=== PATIENT | female | born 1955 | race Caucasian/White ===

== ENCOUNTER 2020-12-18 11:51 | Inpatient (IN) ==
[2020-12-18] MEDS ORDERED: SODIUM CHLORIDE 0.9% 1,000 ML IV STA (12:34)
[2020-12-18] MEDS ORDERED: ONDANSETRON 4 MG/2 ML VIAL IV STA (12:34)
[2020-12-18] MEDS ORDERED: HYDROmorphone 2 MG/1 ML VIAL IV STA ×2 (12:36→14:18)
[2020-12-18 12:41] LABS: Bacteria,Urine Many /HPF (Few); Bilirubin,Urine Negative (Negative); Blood, Urine Moderate mg/dL (Negative); Glucose,Urine (UA) >=500 mg/dL (Negative); Ketones,Urine Negative (Negative); Nitrite,Urine Positive (Negative); Protein,Urine >=500 MG/DL; RBC,Urine 167 /HPF (0-4); Urine Appearance CLOUDY (Clear); Urine Color Amber (Yellow); Urine Urobilinogen < 2.0 EU/DL (0.2-1.0)
[2020-12-18 13:54] LABS: Basophils % 0.2 % (0.0-0.8); Eosinophils % 0.1 % (0.00-10.9); Hematocrit 36.4 VOL% (35.7-47.0); Hemoglobin 11.3 GM/DL (12.0-16.0); Immature Granulocytes % 0.9 %; Immature Granulocytes Absolute 0.14 #; Lymphocytes # 0.6 10*3/uL (1.4-4.0); Lymphocytes % 3.5 % (21.3-54.2); Mean Corpuscular Volume 81.1 FL (87-102); Mean Platelet Volume 9.6 FL (9.6-12.0); Monocytes % 4.7 % (1.7-12.7); NRBC # 0.02 10*3/uL; Neutrophils % 90.6 % (38.7-73.9); Platelet Count 371 T/CUMM (130-400); Red Blood Count 4.49 MC/CUMM (3.8-5.5); Red Cell Distribution Width 17.7 % (9.3-17.3); White Blood Count 15.9 T/CUMM (4-12)
[2020-12-18 14:15] LABS: Alanine Aminotransferase 16 U/L (13-56); Albumin 3.1 G/DL (3.4-5.0); Alkaline Phosphatase 147 U/L (45-117); Aspartate Amino Transferase 13 U/L (0-37); Blood Urea Nitrogen 27 MG/DL (7-18); Carbon Dioxide 23 MMOL/L (21-32); Estimated Glom Filtration Rate 27 ML/MIN; Glucose 373 MG/DL (74-106); Osmolality,Calculated 287.2 MOS/KG (273-304); Potassium 3.8 MMOL/L (3.5-5.1); Sodium 134 MMOL/L (136-145); Total Protein 7.8 G/DL (6.4-8.2)
[2020-12-18 14:16] LABS: Atypical Lymphocytes Few; Eosinophils 1 % (0-10); Lymphocytes 8 % (20-55); Platelet Estimate Adequate; Reactive Lymphocytes Few; Segmented Neutrophils 88 % (50-85); Total Cells Counted 100
[2020-12-18 14:17] LABS: Anisocytosis Slight
[2020-12-18] MEDS ORDERED: LACTATED RINGERS 1,000 ML IV ONE (14:58)
[2020-12-18] MEDS ORDERED: LACTATED RINGERS 500 ML IV ONE (14:58)
[2020-12-18] MEDS ORDERED: cefTRIAXone 1,000 MG in SODIUM CHLORIDE 0.9% 100 ML IV STA (15:00)
[2020-12-18] MEDS ORDERED: ONDANSETRON 4 MG/2 ML VIAL IV PRN (15:30)
[2020-12-18] MEDS ORDERED: GLUCAGON 1 MG VIAL IM PRN (15:30)
[2020-12-18] MEDS ORDERED: hydrALAZINE 20 MG/1 ML VIAL IV PRN (15:34)
[2020-12-18] MEDS: INSULIN LISPRO 100 UNIT/ML SUBCUT SCH ×2 (17:46→21:30)
[2020-12-18] MEDS ORDERED: ACETAMINOPHEN 325 MG TABLET PO PRN (17:49)
[2020-12-18] MEDS: ENOXAPARIN 30 MG/0.3 ML SYRINGE SUBCUT SCH (18:41)
[2020-12-18] MEDS: MORPHINE 2 MG/1 ML SYRINGE IV PRN (21:30)
[2020-12-18] MEDS: SODIUM CHLORIDE 0.45% 1,000 ML IV SCH (21:41)
[2020-12-19] MEDS: HYDROmorphone 2 MG/1 ML VIAL IV PRN ×2 (01:14→09:26)
[2020-12-19] MEDS ORDERED: KETOROLAC 15 MG/1 ML VIAL IV ONE (02:22)
[2020-12-19 03:11] LABS: Basophils % 0.1 % (0.0-0.8); Eosinophils % 0.1 % (0.00-10.9); Hematocrit 27.5 VOL% (35.7-47.0); Immature Granulocytes % 1.3 %; Immature Granulocytes Absolute 0.23 #; Lymphocytes # 0.8 10*3/uL (1.4-4.0); Lymphocytes % 4.2 % (21.3-54.2); Mean Corpuscular HGB Conc 31.6 GM/DL (32-36); Mean Corpuscular Volume 79.3 FL (87-102); Mean Platelet Volume 9.8 FL (9.6-12.0); Monocytes % 5.3 % (1.7-12.7); Red Cell Distribution Width 17.6 % (9.3-17.3); White Blood Count 17.9 T/CUMM (4-12)
[2020-12-19 03:12] LABS: Hemoglobin 8.7 GM/DL (12.0-16.0); Platelet Count 254 T/CUMM (130-400); Red Blood Count 3.47 MC/CUMM (3.8-5.5)
[2020-12-19 03:21] LABS: Calcium 9.4 MG/DL (8.5-10.1); Osmolality,Calculated 279.7 MOS/KG (273-304); Potassium 3.9 MMOL/L (3.5-5.1)
[2020-12-19 03:25] LABS: Risk Ratio 1.71; VLDL Cholesterol 31.8 MG/DL
[2020-12-19 04:03] LABS: Band Neutrophils 4 % (0-10); Lymphocytes 6 % (20-55); Metamyelocytes 1 %; Segmented Neutrophils 82 % (50-85); Total Cells Counted 100
[2020-12-19 04:09] LABS: Hypochromasia 1+; Platelet Estimate Normal; Polychromasia Few; Reactive Lymphocytes 1+
[2020-12-19] MEDS ORDERED: MAGNESIUM SULF RIDER 2 GM/50 ML PREMIX IV PRN (08:15)
[2020-12-19] MEDS ORDERED: MAGNESIUM SULF RIDER 4 GM/100 ML PREMIX IV PRN (08:15)
[2020-12-19] MEDS ORDERED: LEVOFLOXACIN INJ 750 MG/150 ML PREMIX IV SCH (08:30)
[2020-12-19] MEDS: INSULIN GLARGINE 100 UNIT/ML SUBCUT SCH ×2 (09:26→21:13)
[2020-12-19] MEDS: carvediloL 6.25 MG TABLET PO SCH (09:27)
[2020-12-19] MEDS: SERTRALINE 100 MG TABLET PO SCH (09:27)
[2020-12-19] MEDS: PANTOPRAZOLE 40 MG TABLET PO SCH (09:27)
[2020-12-19] MEDS: tiZANidine 4 MG TABLET PO SCH ×2 (09:27→22:57)
[2020-12-19] MEDS: GABAPENTIN 600 MG TABLET PO SCH (09:27)
[2020-12-19] MEDS: INSULIN LISPRO 100 UNIT/ML SUBCUT SCH ×4 (09:28→21:13)
[2020-12-19] MEDS: SODIUM CHLORIDE 0.45% 1,000 ML IV SCH ×2 (09:28→18:00)
[2020-12-19] MEDS: CHOLECALCIFEROL 5,000 UNIT TABLET PO SCH (09:28)
[2020-12-19] MEDS: PIPERACILLIN/TAZOBACTAM 3,375 MG in SODIUM CHLORIDE 0.9% 100 ML IV SCH ×3 (10:19→17:11)
[2020-12-19] MEDS ORDERED: NALOXONE 0.4 MG/ML VIAL IV PRN (12:52)
[2020-12-19] MEDS ORDERED: VANCOMYCIN INJ 1,250 MG in SODIUM CHLORIDE 0.9% 250 ML IV SCH (14:00)
[2020-12-19] MEDS ORDERED: cefTRIAXone 1,000 MG in SODIUM CHLORIDE 0.9% 100 ML IV SCH (16:00)
[2020-12-19] MEDS: ENOXAPARIN 30 MG/0.3 ML SYRINGE SUBCUT SCH (17:05)
[2020-12-19] MEDS ORDERED: SODIUM CHLORIDE 0.9% 1,000 ML IV ONE (20:00)
[2020-12-19] MEDS: PRAMIPEXOLE 0.25 MG TABLET PO SCH (21:11)
[2020-12-19] MEDS: ROSUVASTATIN 20 MG TABLET PO SCH (21:11)
[2020-12-20] MEDS: SODIUM CHLORIDE 0.45% 1,000 ML IV SCH ×2 (02:05→08:31)
[2020-12-20] MEDS: PIPERACILLIN/TAZOBACTAM 3,375 MG in SODIUM CHLORIDE 0.9% 100 ML IV SCH ×2 (02:05→08:31)
[2020-12-20 07:56] LABS: Basophils % 0.2 % (0.0-0.8); Eosinophils # 0.1 10*3/uL (0.0-0.87); Hematocrit 22.9 VOL% (35.7-47.0); Hemoglobin 7.1 GM/DL (12.0-16.0); Immature Granulocytes % 1.1 %; Immature Granulocytes Absolute 0.12 #; Lymphocytes # 0.8 10*3/uL (1.4-4.0); Lymphocytes % 7.6 % (21.3-54.2); Mean Corpuscular Volume 81.5 FL (87-102); Mean Platelet Volume 9.8 FL (9.6-12.0); Monocytes % 4.7 % (1.7-12.7); Neutrophils % 85.4 % (38.7-73.9); Platelet Count 185 T/CUMM (130-400); Red Blood Count 2.81 MC/CUMM (3.8-5.5); White Blood Count 11.1 T/CUMM (4-12)
[2020-12-20 08:15] LABS: Albumin 1.9 G/DL (3.4-5.0); Bilirubin,Total 0.4 MG/DL (0.20-1.00); Calcium 8.9 MG/DL (8.5-10.1); Osmolality,Calculated 276.8 MOS/KG (273-304); Potassium 3.5 MMOL/L (3.5-5.1); Total Protein 5.9 G/DL (6.4-8.2)
[2020-12-20] MEDS: CHOLECALCIFEROL 5,000 UNIT TABLET PO SCH (08:21)
[2020-12-20] MEDS: tiZANidine 4 MG TABLET PO SCH ×2 (08:21→22:44)
[2020-12-20] MEDS: GABAPENTIN 600 MG TABLET PO SCH (08:21)
[2020-12-20] MEDS: PANTOPRAZOLE 40 MG TABLET PO SCH (08:22)
[2020-12-20] MEDS: INSULIN GLARGINE 100 UNIT/ML SUBCUT SCH ×2 (08:22→21:43)
[2020-12-20] MEDS: INSULIN LISPRO 100 UNIT/ML SUBCUT SCH ×4 (08:22→21:46)
[2020-12-20] MEDS: SERTRALINE 100 MG TABLET PO SCH (08:22)
[2020-12-20] MEDS ORDERED: SODIUM CHLORIDE 0.9% 1,000 ML IV PRN (08:39)
[2020-12-20 08:59] LABS: % Iron Saturation 4.9 % (18-50)
[2020-12-20 09:12] LABS: Folate 9.34 NG/ML (5.38-24.0)
[2020-12-20 09:41] LABS: Basophils % 0.1 % (0.0-0.8); Eosinophils # 0.1 10*3/uL (0.0-0.87); Hematocrit 23.7 VOL% (35.7-47.0); Hemoglobin 7.4 GM/DL (12.0-16.0); Immature Granulocytes % 0.9 %; Immature Granulocytes Absolute 0.11 #; Lymphocytes # 0.9 10*3/uL (1.4-4.0); Lymphocytes % 7.5 % (21.3-54.2); Mean Corpuscular HGB Conc 31.2 GM/DL (32-36); Mean Corpuscular Volume 80.9 FL (87-102); Mean Platelet Volume 9.3 FL (9.6-12.0); Neutrophils % 86.5 % (38.7-73.9); Platelet Count 184 T/CUMM (130-400); Red Blood Count 2.93 MC/CUMM (3.8-5.5); Red Cell Distribution Width 17.9 % (9.3-17.3); White Blood Count 11.6 T/CUMM (4-12)
[2020-12-20 10:02] LABS: Hypochromasia 4+; Platelet Estimate Adequate
[2020-12-20 12:21] LABS: Hypochromasia 3+; Lymphocytes 10 % (20-55); Platelet Estimate Adequate; Segmented Neutrophils 84 % (50-85); Total Cells Counted 100
[2020-12-20] MEDS: SODIUM BICARB INJ 100 MEQ in SODIUM CHLORIDE 0.45% 1,000 ML IV SCH (12:42)
[2020-12-20] MEDS ORDERED: MAGNESIUM HYDROXIDE SUSP 30 ML UDCUP PO PRN (13:31)
[2020-12-20] MEDS: cefTRIAXone 1,000 MG in SODIUM CHLORIDE 0.9% 100 ML IV SCH (16:05)
[2020-12-20] MEDS: carvediloL 6.25 MG TABLET PO SCH (16:12)
[2020-12-20] MEDS ORDERED: PIPERACILLIN/TAZOBACTAM 3,375 MG in SODIUM CHLORIDE 0.9% 100 ML IV SCH (20:30)
[2020-12-20] MEDS: PRAMIPEXOLE 0.25 MG TABLET PO SCH (21:41)
[2020-12-20] MEDS: ROSUVASTATIN 20 MG TABLET PO SCH (21:41)
[2020-12-21] MEDS: SODIUM BICARB INJ 100 MEQ in SODIUM CHLORIDE 0.45% 1,000 ML IV SCH ×2 (01:50→13:40)
[2020-12-21] MEDS: HYDROmorphone 2 MG/1 ML VIAL IV PRN (04:07)
[2020-12-21 05:13] LABS: Basophils % 0.1 % (0.0-0.8); Eosinophils # 0.1 10*3/uL (0.0-0.87); Eosinophils % 0.6 % (0.00-10.9); Hematocrit 26.6 VOL% (35.7-47.0); Hemoglobin 8.4 GM/DL (12.0-16.0); Immature Granulocytes % 0.7 %; Immature Granulocytes Absolute 0.09 #; Lymphocytes # 0.8 10*3/uL (1.4-4.0); Lymphocytes % 6.4 % (21.3-54.2); Mean Corpuscular HGB Conc 31.6 GM/DL (32-36); Mean Corpuscular Volume 80.1 FL (87-102); Mean Platelet Volume 9.3 FL (9.6-12.0); Monocytes % 2.5 % (1.7-12.7); Neutrophils % 89.7 % (38.7-73.9); Platelet Count 206 T/CUMM (130-400); Red Blood Count 3.32 MC/CUMM (3.8-5.5); Red Cell Distribution Width 17.2 % (9.3-17.3); White Blood Count 12.3 T/CUMM (4-12)
[2020-12-21 05:39] LABS: Hypochromasia 1+; Lymphocytes 6 % (20-55); Microcytosis 1+; Platelet Estimate Adequate; Segmented Neutrophils 90 % (50-85); Total Cells Counted 100
[2020-12-21 05:40] LABS: Calcium 8.8 MG/DL (8.5-10.1); Osmolality,Calculated 275.8 MOS/KG (273-304); Potassium 3.4 MMOL/L (3.5-5.1)
[2020-12-21] MEDS: INSULIN LISPRO 100 UNIT/ML SUBCUT SCH ×4 (08:47→23:40)
[2020-12-21] MEDS: INSULIN GLARGINE 100 UNIT/ML SUBCUT SCH ×2 (08:49→23:36)
[2020-12-21] MEDS: GABAPENTIN 600 MG TABLET PO SCH (08:53)
[2020-12-21] MEDS: PANTOPRAZOLE 40 MG TABLET PO SCH (08:54)
[2020-12-21] MEDS: SERTRALINE 100 MG TABLET PO SCH (08:56)
[2020-12-21] MEDS: carvediloL 6.25 MG TABLET PO SCH ×2 (08:56→16:50)
[2020-12-21] MEDS: tiZANidine 4 MG TABLET PO SCH ×3 (08:57→23:42)
[2020-12-21] MEDS: CHOLECALCIFEROL 5,000 UNIT TABLET PO SCH (09:01)
[2020-12-21] MEDS: cefTRIAXone 1,000 MG in SODIUM CHLORIDE 0.9% 100 ML IV SCH (16:22)
[2020-12-21 18:06] LABS: Creatinine,Urine Random 14 MG/DL; Total Protein,Urine Random 72 MG/DL
[2020-12-21] MEDS: ROSUVASTATIN 20 MG TABLET PO SCH (23:38)
[2020-12-21] MEDS: PRAMIPEXOLE 0.25 MG TABLET PO SCH (23:39)
[2020-12-22 04:55] LABS: Basophils % 0.1 % (0.0-0.8); Eosinophils # 0.1 10*3/uL (0.0-0.87); Eosinophils % 0.4 % (0.00-10.9); Hematocrit 24.8 VOL% (35.7-47.0); Immature Granulocytes % 0.6 %; Immature Granulocytes Absolute 0.09 #; Lymphocytes # 1.2 10*3/uL (1.4-4.0); Lymphocytes % 8.7 % (21.3-54.2); Mean Corpuscular HGB Conc 32.3 GM/DL (32-36); Mean Corpuscular Volume 78.2 FL (87-102); Monocytes % 3.5 % (1.7-12.7); Neutrophils % 86.7 % (38.7-73.9); Platelet Count 222 T/CUMM (130-400); Red Blood Count 3.17 MC/CUMM (3.8-5.5); Red Cell Distribution Width 17.2 % (9.3-17.3); White Blood Count 14.1 T/CUMM (4-12)
[2020-12-22 05:09] LABS: Calcium 8.9 MG/DL (8.5-10.1); Osmolality,Calculated 274.9 MOS/KG (273-304); Potassium 3.3 MMOL/L (3.5-5.1)
[2020-12-22] MEDS: SODIUM BICARB INJ 100 MEQ in SODIUM CHLORIDE 0.45% 1,000 ML IV SCH (05:41)
[2020-12-22] MEDS: INSULIN LISPRO 100 UNIT/ML SUBCUT SCH ×4 (07:12→20:36)
[2020-12-22] MEDS: INSULIN GLARGINE 100 UNIT/ML SUBCUT SCH ×2 (07:42→20:36)
[2020-12-22] MEDS: SERTRALINE 100 MG TABLET PO SCH (09:01)
[2020-12-22] MEDS: GABAPENTIN 600 MG TABLET PO SCH (09:02)
[2020-12-22] MEDS: tiZANidine 4 MG TABLET PO SCH (09:02)
[2020-12-22] MEDS: CHOLECALCIFEROL 5,000 UNIT TABLET PO SCH (09:02)
[2020-12-22] MEDS: carvediloL 6.25 MG TABLET PO SCH ×2 (09:02→16:45)
[2020-12-22] MEDS: PANTOPRAZOLE 40 MG TABLET PO SCH (09:02)
[2020-12-22] MEDS: POTASSIUM CHLORIDE 20 MEQ TABLET PO PRN (09:03)
[2020-12-22] MEDS: FERRIC GLUCONATE COMPLEX 125 MG in SODIUM CHLORIDE 0.9% 100 ML IV SCH (10:05)
[2020-12-22] MEDS ORDERED: SODIUM CHLORIDE 0.9% 500 ML IV ONE (11:55)
[2020-12-22 12:47] LABS: Hematocrit 23.1 VOL% (35.7-47.0); Hemoglobin 7.4 GM/DL (12.0-16.0)
[2020-12-22] MEDS ORDERED: SODIUM CHLORIDE 0.9% 1,000 ML IV PRN (13:00)
[2020-12-22] MEDS: cefTRIAXone 1,000 MG in SODIUM CHLORIDE 0.9% 100 ML IV SCH (13:59)
[2020-12-22] MEDS: PRAMIPEXOLE 0.25 MG TABLET PO SCH (20:31)
[2020-12-22] MEDS: ROSUVASTATIN 20 MG TABLET PO SCH (20:31)
[2020-12-23 06:35] LABS: Basophils % 0.2 % (0.0-0.8); Eosinophils # 0.2 10*3/uL (0.0-0.87); Eosinophils % 1.8 % (0.00-10.9); Hematocrit 33.1 VOL% (35.7-47.0); Immature Granulocytes Absolute 0.23 #; Lymphocytes # 1.1 10*3/uL (1.4-4.0); Mean Corpuscular Volume 80.9 FL (87-102); Mean Platelet Volume 9.1 FL (9.6-12.0); Monocytes % 4.4 % (1.7-12.7); Neutrophils % 82.6 % (38.7-73.9); Platelet Count 263 T/CUMM (130-400); Red Cell Distribution Width 17.4 % (9.3-17.3); White Blood Count 11.7 T/CUMM (4-12)
[2020-12-23 06:56] LABS: Calcium 9.2 MG/DL (8.5-10.1); Osmolality,Calculated 276.7 MOS/KG (273-304); Potassium 3.4 MMOL/L (3.5-5.1)
[2020-12-23 07:04] LABS: Red Blood Count 4.09 MC/CUMM (3.8-5.5)
[2020-12-23 07:05] LABS: Hemoglobin 10.6 GM/DL (12.0-16.0)
[2020-12-23] MEDS: DEXTROSE 50% 25 GM/50 ML VIAL IV PRN (07:28)
[2020-12-23] MEDS ORDERED: SODIUM CHLORIDE 0.9% 1,000 ML IV SCH (08:00)
[2020-12-23] MEDS: INSULIN LISPRO 100 UNIT/ML SUBCUT SCH ×4 (08:00→22:05)
[2020-12-23] MEDS ORDERED: POTASSIUM CHLORIDE 20 MEQ TABLET PO PRN (08:28)
[2020-12-23] MEDS ORDERED: LIDOCAINE 2% 5 ML VIAL ONE (08:51)
[2020-12-23] MEDS ORDERED: propofoL 200 MG/20 ML VIAL IV ONE (08:51)
[2020-12-23] MEDS: FERRIC GLUCONATE COMPLEX 125 MG in SODIUM CHLORIDE 0.9% 100 ML IV SCH (09:50)
[2020-12-23] MEDS: carvediloL 6.25 MG TABLET PO SCH ×2 (09:56→16:10)
[2020-12-23] MEDS: SERTRALINE 100 MG TABLET PO SCH (09:57)
[2020-12-23] MEDS: PANTOPRAZOLE 40 MG TABLET PO SCH (09:57)
[2020-12-23] MEDS: CHOLECALCIFEROL 5,000 UNIT TABLET PO SCH (09:57)
[2020-12-23] MEDS: cefTRIAXone 1,000 MG in SODIUM CHLORIDE 0.9% 100 ML IV SCH (09:57)
[2020-12-23] MEDS: GABAPENTIN 600 MG TABLET PO SCH (09:57)
[2020-12-23] MEDS: INSULIN GLARGINE 100 UNIT/ML SUBCUT SCH ×2 (10:24→17:23)
[2020-12-23] MEDS ORDERED: BISACODYL 5 MG TABLET PO ONE (15:00)
[2020-12-23] MEDS: POTASSIUM CHLORIDE 20 MEQ TABLET PO PRN ×3 (17:31→22:42)
[2020-12-23] MEDS ORDERED: POLYETHYLENE GLYCOL POWDER 255 GM BOTTLE PO ONE (18:00)
[2020-12-23] MEDS ORDERED: MAGNESIUM CITRATE 300 ML BOTTLE PO ONE (21:00)
[2020-12-23] MEDS: PRAMIPEXOLE 0.25 MG TABLET PO SCH (21:23)
[2020-12-23] MEDS: ROSUVASTATIN 20 MG TABLET PO SCH (21:23)
[2020-12-24 06:34] LABS: Basophils % 0.4 % (0.0-0.8); Eosinophils # 0.2 10*3/uL (0.0-0.87); Eosinophils % 1.8 % (0.00-10.9); Hemoglobin 11.8 GM/DL (12.0-16.0); Immature Granulocytes % 4.2 %; Immature Granulocytes Absolute 0.39 #; Lymphocytes # 1.2 10*3/uL (1.4-4.0); Mean Corpuscular HGB Conc 31.9 GM/DL (32-36); Mean Corpuscular Volume 81.7 FL (87-102); Mean Platelet Volume 8.7 FL (9.6-12.0); Monocytes % 5.8 % (1.7-12.7); Neutrophils % 74.8 % (38.7-73.9); Platelet Count 300 T/CUMM (130-400); Red Blood Count 4.53 MC/CUMM (3.8-5.5); Red Cell Distribution Width 17.3 % (9.3-17.3); White Blood Count 9.3 T/CUMM (4-12)
[2020-12-24] MEDS: MORPHINE 2 MG/1 ML SYRINGE IV PRN (07:06)
[2020-12-24 07:11] LABS: Calcium 9.8 MG/DL (8.5-10.1); Osmolality,Calculated 277.4 MOS/KG (273-304); Potassium 3.9 MMOL/L (3.5-5.1)
[2020-12-24] MEDS ORDERED: LACTATED RINGERS 1,000 ML IV SCH (08:00)
[2020-12-24] MEDS: INSULIN LISPRO 100 UNIT/ML SUBCUT SCH ×5 (08:33→22:16)
[2020-12-24] MEDS: carvediloL 6.25 MG TABLET PO SCH ×2 (09:46→16:43)
[2020-12-24] MEDS: SERTRALINE 100 MG TABLET PO SCH (09:47)
[2020-12-24] MEDS: PANTOPRAZOLE 40 MG TABLET PO SCH (09:47)
[2020-12-24] MEDS: CHOLECALCIFEROL 5,000 UNIT TABLET PO SCH (09:47)
[2020-12-24] MEDS: GABAPENTIN 600 MG TABLET PO SCH (09:47)
[2020-12-24] MEDS: HYDROmorphone 2 MG/1 ML VIAL IV PRN (09:48)
[2020-12-24] MEDS: INSULIN GLARGINE 100 UNIT/ML SUBCUT SCH ×2 (09:50→20:54)
[2020-12-24] MEDS: DEXTROSE 50% 25 GM/50 ML VIAL IV PRN (14:29)
[2020-12-24] MEDS: cefTRIAXone 1,000 MG in SODIUM CHLORIDE 0.9% 100 ML IV SCH (15:16)
[2020-12-24] MEDS: FERRIC GLUCONATE COMPLEX 125 MG in SODIUM CHLORIDE 0.9% 100 ML IV SCH (15:16)
[2020-12-24] MEDS: NYSTATIN CREAM 15 GM TUBE TOP SCH ×2 (15:17→22:19)
[2020-12-24] MEDS: SODIUM CHLORIDE 23.4% CONC INJ 38.5 MEQ, SODIUM BICARB INJ 100 MEQ in STERILE WATER INJ... IV SCH (16:42)
[2020-12-24] MEDS: ROSUVASTATIN 20 MG TABLET PO SCH (20:54)
[2020-12-24] MEDS: PRAMIPEXOLE 0.25 MG TABLET PO SCH (20:54)
[2020-12-25 05:10] LABS: Basophils % 0.3 % (0.0-0.8); Eosinophils # 0.1 10*3/uL (0.0-0.87); Eosinophils % 1.4 % (0.00-10.9); Hematocrit 32.7 VOL% (35.7-47.0); Hemoglobin 10.4 GM/DL (12.0-16.0); Immature Granulocytes Absolute 0.53 #; Lymphocytes % 11.5 % (21.3-54.2); Mean Corpuscular HGB Conc 31.8 GM/DL (32-36); Mean Corpuscular Volume 80.9 FL (87-102); Mean Platelet Volume 8.3 FL (9.6-12.0); Monocytes % 5.6 % (1.7-12.7); Neutrophils % 75.2 % (38.7-73.9); Platelet Count 263 T/CUMM (130-400); Red Blood Count 4.04 MC/CUMM (3.8-5.5); Red Cell Distribution Width 17.2 % (9.3-17.3); White Blood Count 8.8 T/CUMM (4-12)
[2020-12-25 05:39] LABS: Calcium 9.4 MG/DL (8.5-10.1); Potassium 3.5 MMOL/L (3.5-5.1)
[2020-12-25 05:41] LABS: Band Neutrophils 6 % (0-10); Eosinophils 4 % (0-10); Lymphocytes 12 % (20-55); Metamyelocytes 1 %; Platelet Estimate Normal; Segmented Neutrophils 73 % (50-85); Total Cells Counted 100
[2020-12-25 05:42] LABS: Anisocytosis Slight
[2020-12-25] MEDS: INSULIN LISPRO 100 UNIT/ML SUBCUT SCH ×4 (07:56→22:12)
[2020-12-25] MEDS: SODIUM CHLORIDE 23.4% CONC INJ 38.5 MEQ, SODIUM BICARB INJ 100 MEQ in STERILE WATER INJ... IV SCH (09:18)
[2020-12-25] MEDS: GABAPENTIN 600 MG TABLET PO SCH (09:19)
[2020-12-25] MEDS: carvediloL 6.25 MG TABLET PO SCH ×2 (09:19→16:53)
[2020-12-25] MEDS: CHOLECALCIFEROL 5,000 UNIT TABLET PO SCH (09:19)
[2020-12-25] MEDS: SERTRALINE 100 MG TABLET PO SCH (09:19)
[2020-12-25] MEDS: PANTOPRAZOLE 40 MG TABLET PO SCH (09:20)
[2020-12-25] MEDS: INSULIN GLARGINE 100 UNIT/ML SUBCUT SCH ×2 (09:20→22:12)
[2020-12-25] MEDS: cefTRIAXone 1,000 MG in SODIUM CHLORIDE 0.9% 100 ML IV SCH (09:22)
[2020-12-25] MEDS: NYSTATIN CREAM 15 GM TUBE TOP SCH ×2 (09:22→22:12)
[2020-12-25] MEDS: FERRIC GLUCONATE COMPLEX 125 MG in SODIUM CHLORIDE 0.9% 100 ML IV SCH (10:09)
[2020-12-25] MEDS: PRAMIPEXOLE 0.25 MG TABLET PO SCH (22:11)
[2020-12-25] MEDS: ROSUVASTATIN 20 MG TABLET PO SCH (22:11)
[2020-12-26 05:22] LABS: Basophils % 0.4 % (0.0-0.8); Eosinophils # 0.2 10*3/uL (0.0-0.87); Eosinophils % 1.4 % (0.00-10.9); Hematocrit 34.5 VOL% (35.7-47.0); Hemoglobin 10.6 GM/DL (12.0-16.0); Immature Granulocytes % 7.8 %; Immature Granulocytes Absolute 0.84 #; Lymphocytes # 1.2 10*3/uL (1.4-4.0); Lymphocytes % 10.8 % (21.3-54.2); Mean Corpuscular HGB Conc 30.7 GM/DL (32-36); Mean Corpuscular Volume 81.4 FL (87-102); Mean Platelet Volume 8.3 FL (9.6-12.0); Monocytes % 4.9 % (1.7-12.7); Neutrophils % 74.7 % (38.7-73.9); Platelet Count 287 T/CUMM (130-400); Red Blood Count 4.24 MC/CUMM (3.8-5.5); Red Cell Distribution Width 17.1 % (9.3-17.3); White Blood Count 10.8 T/CUMM (4-12)
[2020-12-26 05:47] LABS: Band Neutrophils 4 % (0-10); Eosinophils 3 % (0-10); Lymphocytes 7 % (20-55); Myelocytes 1 %; Platelet Estimate Normal; Segmented Neutrophils 81 % (50-85)
[2020-12-26 05:48] LABS: Total Cells Counted 100
[2020-12-26 05:50] LABS: Calcium 9.6 MG/DL (8.5-10.1); Osmolality,Calculated 282.8 MOS/KG (273-304); Potassium 3.1 MMOL/L (3.5-5.1)
[2020-12-26] MEDS: INSULIN LISPRO 100 UNIT/ML SUBCUT SCH ×4 (07:08→21:06)
[2020-12-26] MEDS: FERRIC GLUCONATE COMPLEX 125 MG in SODIUM CHLORIDE 0.9% 100 ML IV SCH (08:50)
[2020-12-26] MEDS: INSULIN GLARGINE 100 UNIT/ML SUBCUT SCH ×2 (09:28→21:06)
[2020-12-26] MEDS: cefTRIAXone 1,000 MG in SODIUM CHLORIDE 0.9% 100 ML IV SCH (10:31)
[2020-12-26] MEDS: PANTOPRAZOLE 40 MG TABLET PO SCH (10:32)
[2020-12-26] MEDS: CHOLECALCIFEROL 5,000 UNIT TABLET PO SCH (10:33)
[2020-12-26] MEDS: carvediloL 6.25 MG TABLET PO SCH ×2 (10:33→17:11)
[2020-12-26] MEDS: GABAPENTIN 600 MG TABLET PO SCH (10:33)
[2020-12-26] MEDS: SERTRALINE 100 MG TABLET PO SCH (10:33)
[2020-12-26] MEDS: NYSTATIN CREAM 15 GM TUBE TOP SCH ×2 (10:33→21:07)
[2020-12-26] MEDS ORDERED: POTASSIUM CHLORIDE 20 MEQ TABLET PO ONE (13:17)
[2020-12-26] MEDS ORDERED: KETOROLAC 15 MG/1 ML VIAL IV PRN (20:53)
[2020-12-26] MEDS: PRAMIPEXOLE 0.25 MG TABLET PO SCH (21:04)
[2020-12-26] MEDS: ROSUVASTATIN 20 MG TABLET PO SCH (21:04)
[2020-12-27 05:52] LABS: Basophils # 0.1 10*3/uL (0.0-0.2); Basophils % 0.4 % (0.0-0.8); Eosinophils # 0.2 10*3/uL (0.0-0.87); Eosinophils % 1.9 % (0.00-10.9); Hematocrit 35.4 VOL% (35.7-47.0); Hemoglobin 10.8 GM/DL (12.0-16.0); Immature Granulocytes % 7.4 %; Immature Granulocytes Absolute 0.93 #; Mean Corpuscular HGB Conc 30.5 GM/DL (32-36); Mean Corpuscular Volume 82.1 FL (87-102); Mean Platelet Volume 8.3 FL (9.6-12.0); Monocytes % 4.8 % (1.7-12.7); Neutrophils % 69.5 % (38.7-73.9); Platelet Count 329 T/CUMM (130-400); Red Blood Count 4.31 MC/CUMM (3.8-5.5); Red Cell Distribution Width 17.2 % (9.3-17.3); White Blood Count 12.5 T/CUMM (4-12)
[2020-12-27 06:23] LABS: Calcium 9.7 MG/DL (8.5-10.1); Osmolality,Calculated 284.7 MOS/KG (273-304); Potassium 3.4 MMOL/L (3.5-5.1)
[2020-12-27 06:25] LABS: Band Neutrophils 2 % (0-10); Eosinophils 1 % (0-10); Hypochromasia 1+; Lymphocytes 23 % (20-55); Microcytosis 1+; Platelet Estimate Adequate; Segmented Neutrophils 69 % (50-85); Total Cells Counted 100
[2020-12-27] MEDS ORDERED: POTASSIUM CHLORIDE 20 MEQ TABLET PO ONE (07:27)
[2020-12-27] MEDS: cefTRIAXone 1,000 MG in SODIUM CHLORIDE 0.9% 100 ML IV SCH (10:16)
[2020-12-27] MEDS: carvediloL 6.25 MG TABLET PO SCH ×2 (10:17→17:19)
[2020-12-27] MEDS: PANTOPRAZOLE 40 MG TABLET PO SCH (10:18)
[2020-12-27] MEDS: CHOLECALCIFEROL 5,000 UNIT TABLET PO SCH (10:18)
[2020-12-27] MEDS: SERTRALINE 100 MG TABLET PO SCH (10:18)
[2020-12-27] MEDS: GABAPENTIN 600 MG TABLET PO SCH (10:18)
[2020-12-27] MEDS: INSULIN LISPRO 100 UNIT/ML SUBCUT SCH ×4 (10:21→22:57)
[2020-12-27] MEDS: INSULIN GLARGINE 100 UNIT/ML SUBCUT SCH ×2 (10:23→22:58)
[2020-12-27] MEDS: NYSTATIN CREAM 15 GM TUBE TOP SCH ×2 (10:24→22:59)
[2020-12-27] MEDS ORDERED: hydrALAZINE 20 MG/1 ML VIAL IV PRN (16:24)
[2020-12-27] MEDS ORDERED: amLODIPine 5 MG TABLET PO ONE (16:28)
[2020-12-27] MEDS: ROSUVASTATIN 20 MG TABLET PO SCH (22:55)
[2020-12-27] MEDS: PRAMIPEXOLE 0.25 MG TABLET PO SCH (22:55)
[2020-12-28 05:39] LABS: Basophils % 0.3 % (0.0-0.8); Eosinophils # 0.2 10*3/uL (0.0-0.87); Eosinophils % 1.6 % (0.00-10.9); Hematocrit 34.6 VOL% (35.7-47.0); Hemoglobin 10.7 GM/DL (12.0-16.0); Immature Granulocytes % 5.7 %; Immature Granulocytes Absolute 0.67 #; Lymphocytes # 1.9 10*3/uL (1.4-4.0); Lymphocytes % 16.4 % (21.3-54.2); Mean Corpuscular HGB Conc 30.9 GM/DL (32-36); Monocytes % 4.9 % (1.7-12.7); Neutrophils % 71.1 % (38.7-73.9); Platelet Count 269 T/CUMM (130-400); Red Blood Count 4.22 MC/CUMM (3.8-5.5); Red Cell Distribution Width 17.6 % (9.3-17.3); White Blood Count 11.8 T/CUMM (4-12)
[2020-12-28 06:02] LABS: Lymphocytes 17 % (20-55); Platelet Estimate Adequate; Segmented Neutrophils 79 % (50-85); Total Cells Counted 100
[2020-12-28 06:03] LABS: Hypochromasia 1+; Microcytosis 1+
[2020-12-28 06:33] LABS: Calcium 9.1 MG/DL (8.5-10.1); Osmolality,Calculated 291.5 MOS/KG (273-304); Potassium 3.3 MMOL/L (3.5-5.1)
[2020-12-28] MEDS ORDERED: amLODIPine 10 MG TABLET PO SCH (09:00)
[2020-12-28] MEDS ORDERED: amLODIPine 5 MG TABLET PO SCH (09:00)
[2020-12-28] MEDS: CHOLECALCIFEROL 5,000 UNIT TABLET PO SCH (10:32)
[2020-12-28] MEDS: PANTOPRAZOLE 40 MG TABLET PO SCH (10:32)
[2020-12-28] MEDS: GABAPENTIN 600 MG TABLET PO SCH (10:33)
[2020-12-28] MEDS: SERTRALINE 100 MG TABLET PO SCH (10:33)
[2020-12-28] MEDS: carvediloL 6.25 MG TABLET PO SCH (10:33)
[2020-12-28] MEDS: INSULIN GLARGINE 100 UNIT/ML SUBCUT SCH (10:34)
[2020-12-28] MEDS: INSULIN LISPRO 100 UNIT/ML SUBCUT SCH ×2 (10:34→13:36)
[2020-12-28] MEDS: NYSTATIN CREAM 15 GM TUBE TOP SCH (10:36)
[2020-12-28] MEDS ORDERED: POTASSIUM CHLORIDE 20 MEQ TABLET PO ONE (11:00)
[2020-12-28 11:57] VITALS: BP 169/72
== END 2020-12-28 15:43 | disposition home or self-care (01) | DRG 871 ==
LOC: EDBD → EDUNIT# → N.ED 11:51 → N.EDINP 15:30 → SUATTDRO 15:30 → N.5E 16:45
PROVIDERS: ADMIT Internal Medicine; ATTEND Internal Medicine